=== PATIENT | female | born 1975 | race African-American/Black ===

== ENCOUNTER 2020-07-20 21:08 | Observation (INO) ==
[2020-07-20] MEDS ORDERED: PIPERACILLIN/TAZOBACTAM 3,375 MG in SODIUM CHLORIDE 0.9% 100 ML IV STA (23:11)
[2020-07-20] MEDS ORDERED: DEXAMETHASONE 4 MG/1 ML VIAL IV STA (23:11)
[2020-07-20 23:40] LABS: Basophils % 0.3 % (0.0-0.8); Eosinophils # 0.2 10*3/uL (0.0-0.87); Eosinophils % 1.2 % (0.00-10.9); Hematocrit 35.1 VOL% (35.7-47.0); Hemoglobin 11.3 GM/DL (12.0-16.0); Immature Granulocytes % 0.4 %; Immature Granulocytes Absolute 0.06 #; Lymphocytes # 2.4 10*3/uL (1.4-4.0); Lymphocytes % 18.2 % (21.3-54.2); Mean Corpuscular HGB Conc 32.2 GM/DL (32-36); Mean Corpuscular Volume 82.6 FL (87-102); Mean Platelet Volume 8.7 FL (9.6-12.0); Monocytes % 10.3 % (1.7-12.7); Neutrophils % 69.6 % (38.7-73.9); Platelet Count 338 T/CUMM (130-400); Red Blood Count 4.25 MC/CUMM (3.8-5.5); Red Cell Distribution Width 13.5 % (9.3-17.3); White Blood Count 13.4 T/CUMM (4-12)
[2020-07-20] MEDS ORDERED: ONDANSETRON 4 MG/2 ML VIAL IV PRN (23:41)
[2020-07-20] MEDS ORDERED: DEXTROSE 50% 25 GM/50 ML SYRINGE IV PRN (23:41)
[2020-07-20] MEDS ORDERED: ACETAMINOPHEN 325 MG TABLET PO PRN (23:41)
[2020-07-20] MEDS ORDERED: GLUCAGON 1 MG VIAL IM PRN (23:41)
[2020-07-20] MEDS ORDERED: DEXTROSE 50% 25 GM/50 ML VIAL IV PRN (23:48)
[2020-07-20] MEDS ORDERED: amLODIPine 5 MG TABLET PO STA (23:55)
[2020-07-21] MEDS ORDERED: PIPERACILLIN/TAZOBACTAM 3,375 MG VIAL IV ONE
[2020-07-21 00:06] LABS: Albumin 2.9 G/DL (3.4-5.0); Bilirubin,Total 0.4 MG/DL (0.2-1.0); Calcium 8.7 MG/DL (8.5-10.1); Free T4 (Free Thyroxine) 1.14 NG/DL (0.76-1.46); Osmolality,Calculated 272.8 MOS/KG (273-304); Thyroid Stimulating Hormone 2.08 uIU/ml (0.358-3.74); Total Protein 6.8 G/DL (6.4-8.3)
[2020-07-21 00:50] LABS: Sedimentation Rate-Westergren 58 MM/HR (0-20)
[2020-07-21] MEDS ORDERED: INSULIN LISPRO 100 UNIT/ML SUBCUT SCH (07:30)
[2020-07-21] MEDS: PIPERACILLIN/TAZOBACTAM 3,375 MG in SODIUM CHLORIDE 0.9% 100 ML IV SCH ×2 (08:46→17:03)
[2020-07-21] MEDS: DEXAMETHASONE 4 MG/1 ML VIAL IV SCH (08:47)
[2020-07-21] MEDS ORDERED: HYDROmorphone 2 MG/1 ML VIAL IV PRN (16:34)
[2020-07-22] MEDS: PIPERACILLIN/TAZOBACTAM 3,375 MG in SODIUM CHLORIDE 0.9% 100 ML IV SCH ×3 (01:03→17:56)
[2020-07-22 07:21] LABS: Basophils % 0.2 % (0.0-0.8); Eosinophils % 0.1 % (0.00-10.9); Hematocrit 38.5 VOL% (35.7-47.0); Hemoglobin 12.6 GM/DL (12.0-16.0); Immature Granulocytes % 0.6 %; Immature Granulocytes Absolute 0.09 #; Lymphocytes # 2.3 10*3/uL (1.4-4.0); Lymphocytes % 15.6 % (21.3-54.2); Mean Corpuscular HGB Conc 32.7 GM/DL (32-36); Mean Corpuscular Volume 80.2 FL (87-102); Mean Platelet Volume 8.6 FL (9.6-12.0); Monocytes % 8.3 % (1.7-12.7); Neutrophils % 75.2 % (38.7-73.9); Platelet Count 422 T/CUMM (130-400); Red Cell Distribution Width 13.4 % (9.3-17.3)
[2020-07-22 07:45] LABS: Calcium 9.2 MG/DL (8.5-10.1); Osmolality,Calculated 278.5 MOS/KG (273-304)
[2020-07-22] MEDS ORDERED: DIAZEPAM 5 MG TABLET PO ONE (09:00)
[2020-07-22] MEDS: DEXAMETHASONE 4 MG/1 ML VIAL IV SCH ×2 (09:47→17:57)
[2020-07-22] MEDS: amLODIPine 5 MG TABLET PO SCH (09:47)
[2020-07-22 10:07] LABS: PT Patient Result 10.5 SECS (9.8-11.9)
[2020-07-22] MEDS ORDERED: ZALEPLON 5 MG CAPSULE PO PRN (14:32)
[2020-07-22] MEDS: POLYETHYLENE GLYCOL POWDER 17 GM PACK PO SCH (15:31)
[2020-07-22] MEDS ORDERED: NICOTINE 14 MG/24 HR PATCH TRANSDERM PRN (16:36)
[2020-07-22] MEDS ORDERED: ENOXAPARIN 40 MG/0.4 ML SYRINGE SUBCUT SCH (21:00)
[2020-07-23] MEDS: PIPERACILLIN/TAZOBACTAM 3,375 MG in SODIUM CHLORIDE 0.9% 100 ML IV SCH ×2 (01:11→09:12)
[2020-07-23 06:05] LABS: Basophils % 0.3 % (0.0-0.8); Eosinophils % 0.1 % (0.00-10.9); Hematocrit 38.7 VOL% (35.7-47.0); Hemoglobin 12.4 GM/DL (12.0-16.0); Immature Granulocytes % 0.5 %; Immature Granulocytes Absolute 0.07 #; Lymphocytes # 2.6 10*3/uL (1.4-4.0); Lymphocytes % 19.6 % (21.3-54.2); Mean Corpuscular Volume 81.6 FL (87-102); Mean Platelet Volume 9.1 FL (9.6-12.0); Monocytes % 8.7 % (1.7-12.7); Neutrophils % 70.8 % (38.7-73.9); Platelet Count 393 T/CUMM (130-400); Red Blood Count 4.74 MC/CUMM (3.8-5.5); Red Cell Distribution Width 13.3 % (9.3-17.3); White Blood Count 13.5 T/CUMM (4-12)
[2020-07-23 06:28] LABS: Calcium 9.2 MG/DL (8.5-10.1); Osmolality,Calculated 277.5 MOS/KG (273-304)
[2020-07-23] MEDS: DEXAMETHASONE 4 MG/1 ML VIAL IV SCH (09:12)
[2020-07-23] MEDS: POLYETHYLENE GLYCOL POWDER 17 GM PACK PO SCH (09:12)
[2020-07-23] MEDS: amLODIPine 5 MG TABLET PO SCH (09:12)
[2020-07-23 12:06] VITALS: BP 149/83
== END 2020-07-23 15:08 | disposition home or self-care (01) ==
LOC: N.EDINP 21:08 → N.ED 21:08 → SUATTDRO 23:41 → N.5E 07-21 01:30
PROVIDERS: ADMIT Internal Medicine; ATTEND Internal Medicine